=== PATIENT | female | born 1960 | race Caucasian/White ===

== ENCOUNTER → 2020-10-27 13:09 | Outpatient (CLI) | payer MEDICARE, OTHER ==
[~2020-10-27] VITALS: Ht 170.2 cm; Wt 66.4 kg
[~2020-10-27 13:09] MED LIST: AMITRIPTYLINE H50 MG PO; ASPIRIN81 MG PO; BENTYL 20 MG TA20 MG PO; BISOPROLOL FUMAR5 MG PO; COMBIGAN OPHT DR5 ML EACH EYE; COREG6.25 MG PO; CRESTOR10 MG PO; EFFEXOR XR150 MG PO; EFFEXOR37.5 MG PO; EMGALITY; FLOMAX0.4 MG PO; HCTZ25 MG PO; JANTOVEN2.5 MG PO; JANTOVEN5 MG PO; KEPPRA1000 MG PO; LIPITOR20 MG PO; LISINOPRIL10 MG PO; LUMIGAN 0.01%2.5 ML EACH EYE; MYCOSTATIN CREA15 GM TOPICAL; NORVASC5 MG PO; SYNTHROID100 MCG PO; VITAMIN D50000 UNI1 PO; XALATAN 0.0052.5 ML EACH EYE; ZYLOPRIM100 MG
[2020-10-27 13:44] VITALS: BP 139/85; Ht 170.2 cm; Wt 66.4 kg
--- NOTE | 2020-10-27 14:31 | NUR ---
ABOUT TO DC PT AT 1410 AND PT STATES BEING NAUSEATED. GAVE HER A COOL RAG. PT STATES SHE FEELS LIKE SHE'S ABOUT TO HAVE A MIGRAINE (PT HAS HX OF MIGRAINES). VS AT 1415: BP 161/101,HR 92, RR 20 OS SAT97%. PT WAS SHOWING STROKE-LIKE SYMPTOMS. SLURRED SPEECH. WEAKNESS GENERALIZED. VS 1425 BP 130/66, O2 SAT 100%, 79 HR, [address] BURNETT TO INFORM HIM OF PT'S STATUS. HE ORDERED FOR HER TO BE TRANSFERRED TO ER. WILL TRANSFER PT SHORTLY.
--- NOTE | 2020-10-27 14:56 | NUR ---
SPOKE W/ PT'S AND HE STATES THAT SHE HAS STROKE-LIKE SYMPTOMS WHEN SHE HAS MIGRAINES. PT WAS TRANSFERRED TO ER PER DR. BURNETT'S ORDERS.
== END | disposition home or self-care (01) ==
LOC: D.OPS 13:00
PROVIDERS: ATTEND Family Medicine
DX: M81.0 Age-related osteoporosis without current pathological fracture (principal)

== ENCOUNTER 2020-10-27 14:41 | Emergency (ER) | payer MEDICARE, OTHER ==
[~2020-10-27] VITALS: Ht 170.2 cm; Wt 66.4 kg
[2020-10-27 14:53] VITALS: Ht 170.2 cm; Wt 66.4 kg
[2020-10-27 16:47] VITALS: BP 128/66
== END 2020-10-27 16:49 | disposition home or self-care (01) ==
LOC: D.ER 14:41
DX: G43.409 Hemiplegic migraine, not intractable, without status migrainosus (principal); G62.9 Polyneuropathy, unspecified; I10 Essential (primary) hypertension; Z72.0 Tobacco use

== ENCOUNTER 2020-12-14 07:13 | Day surgery (SDC) | payer MEDICARE, OTHER ==
[~2020-12-14] VITALS: Ht 170.2 cm; Wt 65.9 kg
[2020-12-14 07:43] LABS: BASOPHILS 0.2 % (0-2); EOSINOPHILS 0.4 % (0-7); HEMATOCRIT 46.9 % (36.0-48.0); HEMOGLOBIN 15.4 g/dL (12-16); IMMATURE GRANULOCYTES 0.4 % (0-5); LYMPHOCYTE ABS# 2.25 10x3/uL (1.18-3.74); LYMPHOCYTES 26.8 % (15-50); MCH 30.4 pg (26.0-34.0); MCHC 32.8 g/dL (31.0-37.0); MCV 92.7 fL (80.0-100.0); MEAN PLATELET VOLUME 10.6 fL (7.4-10.4); NEUTROPHIL ABS# 5.41 10x3/uL (1.56-6.13); NEUTROPHILS 64.2 % (40-80); RBC 5.06 10x6/uL (4.00-5.40); WBC 8.4 10x3/uL (4.8-10.8)
[2020-12-14 07:47] LABS: PLATELET COUNT 387 10x3/uL (130-400)
[2020-12-14 07:53] LABS: ALBUMIN 4.6 g/dL (3.4-5.0); ALKALINE PHOSPHATASE 86 U/L (30-120); ALT (SGPT) 59 U/L (10-68); BILIRUBIN - TOTAL 0.33 mg/dL (0.2-1.3); CALC OSMOLALITY 294 mosm/kg (275-300); CALCIUM 9.6 mg/dL (8.5-10.1); CARBON DIOXIDE 24.1 mmol/L (21.0-32.0); CHLORIDE - SERUM 110 mmol/L (98-107); CREATININE - SERUM 0.8 mg/dL (0.6-1.3); GLUCOSE 138 mg/dL (74-106); POTASSIUM - SERUM 4.1 mmol/L (3.5-5.1); PROTEIN - SERUM 8.3 g/dL (6.4-8.2); SODIUM 146 mmol/L (136-145); UREA NITROGEN 17 mg/dL (7-18); eGFR NON AFRICAN AMERICAN 77 mL/min (90-120)
[2020-12-14 08:45] LABS: APTT 29.5 SECONDS (22.8-39.4); INR 1.08 (0.85-1.17)
[2020-12-14 09:01] VITALS: Ht 170.2 cm; Wt 65.9 kg
--- NOTE | 2020-12-14 10:38 | NUR ---
AT BEDSIDE 1050 FAXED F/U APPT ORDER FOR 8WKS 1053 POST OP TEACHING TO PT AND . VERBALIZED UNDERSTANDING. 1100 PIV DC'D, CATHETER INTACT, PT DRESSING SELF 1155 PT DC'D VIA WC BY THIS NURSE TO POV WITH DRIVING. ALL BELONGINGS AND DC PACKET WITH PT/.
--- NOTE | 2020-12-15 14:32 | OP ---
PATIENT NAME: ANNAMARIE HIGUERA MEDICAL RECORD: [id number] :58 LOCATION:[facility] ADMISSION DATE: SURGEON: CATHI LAMB DO DATE OF OPERATION: 12/14/2020 PROCEDURE: Colonoscopy with biopsies and polypectomy. INDICATION FOR PROCEDURE: Diarrhea and stomach cramping. SCOPE: [email or web address] video pediatric colonoscope. MEDICATIONS: Propofol 250 mg IV per anesthesia. WITHDRAWAL TIME: 12 minutes. ESTIMATED BLOOD LOSS: Minimal. COMPLICATIONS: None. FINDINGS: Informed consent was given. The patient was made comfortable with the above medication. After reaching an adequate level of sedation by slow IV push, the patient was placed on her left side. A digital rectal examination was performed and it was normal. The endoscope was then advanced under direct visualization through the rectum to the cecum, confirmed by the presence of the appendiceal orifice and ileocecal valve. The endoscope was slowly withdrawn and the mucosa was carefully examined. The prep quality was good. There was a single polyp visualized on today's examination. It was located in the ascending colon. There was a benign-appearing sessile polyp, which measured approximately 3 mm in diameter. It was removed using hot forceps. There was evidence of mild diverticulosis involving the sigmoid colon. Retroflexion was performed in the rectum with visualization of grade I internal hemorrhoids without bleeding. During the examination, stool was collected to submit for further studies including an infectious studies, ova and parasite, fecal fat, fecal white blood cells. Random biopsies were also taken to submit for histopathology and to rule out the presence of microscopic colitis. The endoscope was withdrawn from the patient. The patient tolerated the procedure well and there were no complications. IMPRESSION: 1. Single benign-appearing sessile polyp located in the ascending colon, status post hot forceps removal. 2. Mild diverticulosis involving the sigmoid colon. 3. Grade I internal hemorrhoids without bleeding. PLAN AND RECOMMENDATIONS: 1. Discharge home when recovery parameters are met. 2. Follow up biopsy specimen results and stool studies. 3. High fiber diet. 4. Continue current medications. 5. We will renew prescription for dicyclomine 20 mg tablets to take 1 p.o. t.i.d. p.r.n. loose stools or abdominal pain and cramping. 6. Proceed with EGD as scheduled. 7. Anticipate ordering a gastric emptying scan based on symptoms of gastroparesis. 8. Recall colonoscopy in 5 years. OPERATIVE REPORT [id number] HIGUERAANNAMARIE FLOYD TRAVON TRANSINT:[id number] Voice Confirmation ID: [id number] DOCUMENT ID: [id number] CATHI LAMB DO at 1432 CC: [id number] DICTATION DATE: 12/14/20 1026 [employer] BENCH: 12/14/20 1347 [facility] 12/14/20 [facility] [address] [place] [address]
[2020-12-16 16:09] LABS: OVA + PARASITE EXAM Final report (())
== END 2020-12-14 11:15 | disposition home or self-care (01) ==
LOC: D.OPS 07:13
PROVIDERS: Anesthesiology; ATTEND Internal Medicine Gastroenterology
DX: K63.5 Polyp of colon (principal); K57.30 Diverticulosis of large intestine without perforation or abscess without bleeding; K64.0 First degree hemorrhoids; R11.0 Nausea; R10.13 Epigastric pain; R25.2 Cramp and spasm; R19.7 Diarrhea, unspecified

== ENCOUNTER 2020-12-28 08:34 | Day surgery (SDC) | payer MEDICARE, OTHER ==
[~2020-12-28] VITALS: Ht 170.2 cm; Wt 67.3 kg
[2020-12-28 08:56] LABS: BASOPHILS 0.4 % (0-2); EOSINOPHILS 0.7 % (0-7); HEMATOCRIT 44.8 % (36.0-48.0); HEMOGLOBIN 14.9 g/dL (12-16); LYMPHOCYTES 31.9 % (15-50); MCH 30.3 pg (26.0-34.0); MCHC 33.2 g/dL (31.0-37.0); MCV 91.3 fL (80.0-100.0); MEAN PLATELET VOLUME 8.1 fL (7.4-10.4); PLATELET COUNT 371 10x3/uL (130-400); RBC 4.91 10x6/uL (4.00-5.40); RDW 13.1 % (11.5-14.5); WBC 7.6 10x3/uL (4.8-10.8)
[2020-12-28] MEDS ORDERED: BENTYL 20 MG TA20 MG PO (09:14)
[2020-12-28 09:16] VITALS: BP 128/89; Ht 170.2 cm; Wt 67.3 kg
[2020-12-28 09:19] LABS: ALBUMIN 4.5 g/dL (3.4-5.0); ALKALINE PHOSPHATASE 69 U/L (30-120); ALT (SGPT) 69 U/L (10-68); BILIRUBIN - TOTAL 0.33 mg/dL (0.2-1.3); CALC OSMOLALITY 279 mosm/kg (275-300); CALCIUM 9.3 mg/dL (8.5-10.1); CARBON DIOXIDE 27.4 mmol/L (21.0-32.0); CHLORIDE - SERUM 104 mmol/L (98-107); CREATININE - SERUM 0.8 mg/dL (0.6-1.3); GLUCOSE 125 mg/dL (74-106); POTASSIUM - SERUM 4.2 mmol/L (3.5-5.1); PROTEIN - SERUM 7.5 g/dL (6.4-8.2); SODIUM 140 mmol/L (136-145); UREA NITROGEN 13 mg/dL (7-18); eGFR NON AFRICAN AMERICAN 77 mL/min (90-120)
--- NOTE | 2020-12-28 10:46 | NUR ---
DC TEACHING COMPLETE TO PT AND . VERBALIZED UNDERSTANDING. ORDER FAXED TO OFFICE TO CONTACT PT FOR F/U APPT. 1050 PIV DC'D WITH CATHETER INTACT. PT GETTING DRESSED. 1101 DC'D VIA WC ACCOMPANIED BY THIS NURSE TO POV WITH DRIVING. PT/ HAS ALL BELONGINGS AND DC PACKET.
--- NOTE | 2020-12-29 06:25 | OP ---
PATIENT NAME: ANNAMARIE HIGUERA MEDICAL RECORD: [id number] :58 LOCATION:[facility] ADMISSION DATE: SURGEON: CATHI LAMB DO DATE OF OPERATION: 12/28/2020 PROCEDURE: EGD with biopsies. INDICATION FOR PROCEDURE: Epigastric pain, heartburn, nausea, stomach cramping. SCOPE: Olympus video gastroscope. MEDICATIONS: Propofol 140 mg IV per anesthesia. ESTIMATED BLOOD LOSS: Minimal. COMPLICATIONS: None. DESCRIPTION OF PROCEDURE AND FINDINGS: Informed consent was given. The patient was made comfortable with the above medication. After reaching an adequate level of sedation by slow IV push, the patient was placed on her left side. The endoscope was advanced under direct visualization through the mouth to the second portion of the duodenum with ease. The upper and mid esophagus appeared normal. Cold forceps biopsies were taken from the mid esophagus to rule out the presence of eosinophils. At the GE junction, there was evidence of LA class A reflux-induced esophagitis. Cold forceps biopsies were taken at the squamocolumnar junction to submit for histopathology. The endoscope was advanced beyond the GE junction into the stomach and retroflexed to view of the cardia, where a patulous GE junction was visualized. Throughout the entire stomach, there were patchy areas of erythema, granularity, and friability. Cold forceps biopsies were taken from the antrum and incisura to submit for histopathology and to rule out the presence of H. pylori. The endoscope was advanced beyond the pylorus into the duodenum, which appeared normal to the second portion. Cold forceps biopsies were randomly taken to submit for histopathology based on the patient's symptoms. The endoscope was then withdrawn from the patient. The patient tolerated the procedure well and there were no complications. IMPRESSION: 1. LA class A reflux-induced esophagitis. 2. Patulous gastroesophageal junction. 3. Chronic gastritis changes. PLAN AND RECOMMENDATIONS: 1. Discharge home when recovery parameters are met. 2. Follow up on biopsy specimen results. 3. GERD diet and reflux precautions. 4. Low FODMAP diet. 5. Add omeprazole 40 mg daily times 60 days and Carafate 1 tab t.i.d. times 3 weeks. 6. Follow up in GI clinic in 6 weeks. 7. If symptoms of nausea persist, consider gastric emptying scan. TRANSINT:[id number] Voice Confirmation ID: [id number] DOCUMENT ID: [id number] OPERATIVE REPORT [id number] ANNAMARIE HIGUERA NATHAN A DO at 0625 CC: [id number] DICTATION DATE: 12/28/20 1007 INSIDE UPHOLSTERER: 12/28/20 1255 [facility] 12/28/20 [place] [id number] [place] [id number]
== END 2020-12-28 11:01 | disposition home or self-care (01) ==
LOC: D.OPS 08:34
PROVIDERS: Anesthesiology; ATTEND Internal Medicine Gastroenterology
DX: R10.13 Epigastric pain (principal); R11.0 Nausea; R10.84 Generalized abdominal pain; K21.00 Gastro-esophageal reflux disease with esophagitis, without bleeding; K29.50 Unspecified chronic gastritis without bleeding; R19.7 Diarrhea, unspecified

== ENCOUNTER → 2021-01-14 10:27 | Outpatient (CLI) | payer MEDICARE, OTHER ==
[2020-12-28 09:16] VITALS: BMI 23.2
[2021-01-14 10:54] LABS: BASOPHILS 0.7 % (0-2); EOSINOPHILS 0.8 % (0-7); HEMATOCRIT 41.9 % (36.0-48.0); LYMPHOCYTES 43.1 % (15-50); MCH 30.4 pg (26.0-34.0); MCHC 33.5 g/dL (31.0-37.0); MCV 90.6 fL (80.0-100.0); MONOCYTES 8.5 % (2-11); NEUTROPHILS 46.9 % (40-80); PLATELET COUNT 331 10x3/uL (130-400); RBC 4.62 10x6/uL (4.00-5.40); RDW 13.5 % (11.5-14.5); WBC 5.9 10x3/uL (4.8-10.8)
== END | disposition home or self-care (01) ==
LOC: D.LAB 10:27
PROVIDERS: ATTEND Psychiatry & Neurology Neurology
DX: R56.9 Unspecified convulsions (principal)

== ENCOUNTER → 2021-02-08 07:29 | Outpatient (CLI) | payer MEDICARE, OTHER ==
[2020-12-28 09:16] VITALS: BMI 23.2
== END | disposition home or self-care (01) ==
LOC: D.NM 07:29
PROVIDERS: ATTEND Internal Medicine Gastroenterology
DX: R11.0 Nausea (principal); K21.9 Gastro-esophageal reflux disease without esophagitis